=== PATIENT | male | born 1955 | race Caucasian/White ===

== ENCOUNTER → 2017-07-03 | Day surgery (SDC) | payer BC | LOC: MSO 07:30 | DX: Z12.11 Encounter for screening for malignant neoplasm of colon (principal); Z79.82 Long term (current) use of aspirin; I10 Essential (primary) hypertension; E78.5 Hyperlipidemia, unspecified; G47.33 Obstructive sleep apnea (adult) (pediatric); G43.909 Migraine, unspecified, not intractable, without status migrainosus; F41.9 Anxiety disorder, unspecified; F32.9 Major depressive disorder, single episode, unspecified | CPT/HCPCS: 00812; J2704; J7120 ==

== ENCOUNTER → 2021-08-18 | Outpatient (CLI) | payer BC | LOC: RAD 10:13 | DX: M17.11 Unilateral primary osteoarthritis, right knee (principal) ==

== ENCOUNTER → 2023-06-30 | Outpatient (CLI) | payer MEDICARE, OTHER ==
[~2023-06-30] MED LIST: Iohexol 350 - 100 ML VIAL IV ONE
== END ==
LOC: RAD 09:11
DX: N20.0 Calculus of kidney (principal); N28.1 Cyst of kidney, acquired; I51.7 Cardiomegaly
CPT/HCPCS: Q9967